=== PATIENT | male | born 1985 | race Caucasian/White ===

== ENCOUNTER 2016-11-26 19:04 | Emergency (ER) | payer OTHER ==
[~2016-11-26] VITALS: Ht 182.9 cm; Wt 129.6 kg
[~2016-11-26 19:04] MED LIST: ALBUAER19 INH
[2016-11-26] MEDS ORDERED: PRAZ1CAP10 PO (19:11)
[2016-11-26 19:13] VITALS: TEMP 36.8; Ht 182.9 cm; Wt 129.6 kg
[2016-11-26] MEDS ORDERED: KETOROLAC TROMETHAMINE 30 MG/ML VIAL IV STA (19:34)
[2016-11-26] MEDS ORDERED: DiphenhydrAMINE HCL 50 MG/ML VIAL IV STA (19:34)
[2016-11-26] MEDS ORDERED: PROCHLORPERAZINE 5 MG/ML 2 ML VIAL IV STA (19:34)
[2016-11-26] MEDS ORDERED: SODIUM CHLORIDE 0.9% 1000ML 1,000 ML IV STA (19:34)
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
[2016-11-26] MEDS ORDERED: PRAZ2CAP3 PO (19:49)
--- NOTE | 2016-11-26 20:05 | DIAGNOSTIC IMAGING REPORT ---
CT SCAN OF THE BRAIN WITHOUT IV CONTRAST CLINICAL HISTORY: Headache. COMPARISON STUDY: CT of the brain dated 04/14/2016. TECHNIQUE: Unenhanced axial CT scan of the brain is performed from the vertex to the skull base. Automated dose control exposure was utilized. CT DOSE: 729.78 mGycm FINDINGS: Brain parenchyma: The brain parenchyma is normal in appearance. There is no hemorrhage, mass effect, or evidence of acute territorial ischemia by CT criteria. Hogue-white matter is preserved. No extra-axial fluid collection is seen. Ventricles, sulci, cisterns: Normal in configuration. Intracranial vasculature: The visualized intracranial vasculature at the skull base is normal in appearance. Calvarium: Unremarkable. Sinuses and mastoids: The visualized paranasal sinuses are clear. There is a small right mastoid effusion. The left mastoid air cells are well pneumatized. Orbits: The bony orbits are grossly intact. IMPRESSION: No acute intracranial abnormality. Electronically signed by: Nolan Doyle M.D. 11/26/2016 8:04 PM Dictated Date/Time: 11/26/2016 8:03 PM
[2016-11-26 21:05] VITALS: BP 138/80; PULSE 81; O2SAT 98
== END 2016-11-26 21:05 | disposition home or self-care (01) ==
LOC: C.EDB 19:05 → C.EDA 21:05
DX: G43.909 Migraine, unspecified, not intractable, without status migrainosus (principal); I35.1 Nonrheumatic aortic (valve) insufficiency; J45.909 Unspecified asthma, uncomplicated; Z79.899 Other long term (current) drug therapy; Z88.0 Allergy status to penicillin; Z88.2 Allergy status to sulfonamides; Z88.8 Allergy status to other drugs, medicaments and biological substances

== ENCOUNTER 2016-12-01 16:14 | Emergency (ER) | payer OTHER ==
[~2016-12-01] VITALS: Ht 182.9 cm; Wt 128.5 kg
[~2016-12-01 16:14] MED LIST changes: -ALBUAER19 INH; +PRAZ1CAP10 PO; +PRAZ2CAP3 PO
[2016-12-01 16:17] VITALS: TEMP 36.9; Ht 182.9 cm; Wt 128.5 kg
[2016-12-01] MEDS ORDERED: LMC25 PO (16:33)
[2016-12-01] MEDS ORDERED: PRAZ2CAP2 PO (16:33)
[2016-12-01] MEDS ORDERED: ACETAMINOPHEN 500 MG TAB PO STA (17:07)
[2016-12-01] MEDS ORDERED: ACETAMINOPHEN 325 MG TAB ONE (17:32)
--- NOTE | 2016-12-01 17:49 | DIAGNOSTIC IMAGING REPORT ---
LUMBAR SPINE 5 VIEWS CLINICAL HISTORY: Low back pain. Lifting injury. FINDINGS: 5 views of the lumbar spine are obtained. No prior studies are available for comparison at the time of dictation. The skeletal structures are well mineralized. There is no radiographic evidence of fracture or malalignment. Vertebral body height and alignment are maintained. The transverse and spinous processes are intact. There is no evidence of spondylolysis. The intervertebral disc spaces are well-maintained. The visualized bony pelvis appears intact. There is a nonobstructed abdominal bowel gas pattern. IMPRESSION: Unremarkable radiographic evaluation of the lumbosacral spine. Electronically signed by: Nolan Doyle M.D. 12/01/2016 5:48 PM Dictated Date/Time: 12/01/2016 5:48 PM
--- NOTE | 2016-12-01 17:51 | DIAGNOSTIC IMAGING REPORT ---
THORACIC SPINE 3 VIEWS CLINICAL HISTORY: Thoracic back pain. Lifting injury. FINDINGS: AP, lateral, and swimmer's views of the thoracic spine are obtained. No prior studies are available for comparison at the time of dictation. The skeletal structures are well mineralized. There is no radiographic evidence of fracture or malalignment. Vertebral body height and alignment are maintained throughout the thoracic spine. The transverse processes and pedicles are grossly intact on the frontal view. The intervertebral disc spaces are maintained. The lung parenchyma is clear as imaged. IMPRESSION: Unremarkable radiographic assessment of the thoracic spine. Electronically signed by: Nolan Doyle M.D. 12/01/2016 5:49 PM Dictated Date/Time: 12/01/2016 5:48 PM
[2016-12-01] MEDS ORDERED: FLEXERIL HOME PACK 10 MG VIAL PO STA (18:34)
[2016-12-01] MEDS ORDERED: OXYCODONE IR HOME PACK PO STA (18:34)
[2016-12-01] MEDS ORDERED: OXYC1TAB3 PO (18:45)
[2016-12-01] MEDS ORDERED: CYCL10TA6 PO (18:45)
--- NOTE | 2016-12-01 18:51 | EMERGENCY ROOM VISIT NOTE ---
History First contact with patient: 16:49 Chief Complaint: BACK PAIN Stated Complaint: BACK PAIN- History of Present Illness The patient is a 31 year old male who presents to the Emergency Room via private vehicle with complaints of "back pain". 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 He notes he has had pain since. He notes that his entire back at this time hurts, mostly on the sides of the spine. He also notes he has pain radiating down the left arm. He states he has never had this before. He rates the pain as a 9/10 and throughout his entire back. He notes a dull pain into his legs and into his left arm. He does have a previous history of left shoulder injury. He this time denies any chest pain, shortness of breath. He denies any lower extremity weakness, bowel or bladder incontinence or numbness or tingling in the genital region. Review of Systems A complete 6-point Review of Systems was discussed with the patient, with pertinent positives and negatives listed in the History of Present Illness. All remaining Review of Systems questions can be considered negative unless otherwise specified. Past Medical/Surgical History Medical Problems: (1) Aortic regurgitation (2) Asthma, Unspecified Family History No significant family history Social History Smoking Status: Never Smoker Alcohol Use: none Drug Use: none Marital Status: Housing Status: lives with family Occupation Status: employed Current/Historical Medications Scheduled Budesonide/Formoterol Fumarate (Symbicort 160/4.5 Inhaler), 2 PUFFS INH BID Cyclobenzaprine Hcl (Flexeril), 10 MG PO TID Lamotrigine (Lamotrigine), 25 MG PO DAILY Magnesium Oxide (Magnesium Oxide), 420 MG PO DAILY Prazosin Hcl (Prazosin), 2 MG PO BID Sertraline Hcl (Zoloft), 200 MG PO DAILY Topiramate (Topamax), 100 MG PO DAILY Scheduled PRN Albuterol (Ventolin Hfa), 2 PUFFS INH Q4H PRN for Rescue/Asthma Symptoms Oxycodone Ir (Roxicodone Ir), 1-2 TAB PO Q4H PRN for Pain Allergies Coded Allergies: Clarithromycin (Verified Allergy, Intermediate, Rash, 11/26/16) Sulfa Drugs (Unverified Allergy, Mild, 04/14/16) Sulfamethoxazole (Unverified Allergy, Mild, 04/14/16) Trimethoprim (Unverified Allergy, Mild, 04/14/16) Penicillins (Unverified Allergy, Unknown, NEVER HAD REACTION,FAMILY HISTORY OF REACTION, 04/14/16) Physical Exam Vital Signs Date Time Temp Pulse Resp B/P Pulse Ox O2 Delivery O2 Flow Rate FiO2 12/01/16 19:01 74 15 142/95 99 12/01/16 16:17 36.9 88 18 153/97 97 Room Air Physical Exam VITAL SIGNS - Vital signs and nursing notes were reviewed. Patient is afebrile , slightly hypertensive at 153/97, non-tachycardic and is saturating well on room air at 97% GENERAL -31-year-old male appearing his stated age who is in no acute distress. Communicates well with provider and answers questions appropriately. SKIN - Without rashes. No petechial rashes. HEAD - NC/AT. EYES - Sclera anicteric. Palpebral conjunctiva pink and moist with no injection noted. EARS - No deformities of external structures noted on gross examination bilaterally. NECK - Neck with FROM. Supple to palpation. There is minimal tenderness to palpation overlying the paraspinous musculature of the cervical spine. No spinous processes tenderness. MUSCULOSKELETAL: There is tenderness to palpation overlying the paraspinous muscles which are of the thoracic and lumbar spine. No spinous processes tenderness. LUNGS - Chest wall symmetric without accessory muscle use, intercostals retractions, or central cyanosis. Normal vesicular breath sounds CTA B/L. No wheezes, rales, or rhonchi appreciated. CARDIAC - RRR with S1/S2. No murmur, rubs, or gallops appreciated. ABDOMEN - Abdominal contour without pulsations or visible masses. BS normoactive all four quadrants. No tenderness, palpable masses, hepatosplenomegaly, or ascites noted. EXTREMITIES - No clubbing or peripheral cyanosis. No pretibial edema present. Patient is vascularly intact in his extremities. +5/5 strength noted in UE/LE bilaterally. There is minimal tenderness to palpation overlying the left arm. Near Full range of motion noted. NEUROLOGIC - Cranial nerves II through XII grossly intact. Sensory intact to light touch throughout. Patellar reflexes +2/4. PSYCH - Pt is very pleasant and interacts well with examiner. Medical Decision & Procedures ER Provider Diagnostic Interpretation: LUMBAR SPINE 5 VIEWS CLINICAL HISTORY: Low back pain. Lifting injury. FINDINGS: 5 views of the lumbar spine are obtained. No prior studies are available for comparison at the time of dictation. The skeletal structures are well mineralized. There is no radiographic evidence of fracture or malalignment. Vertebral body height and alignment are maintained. The transverse and spinous processes are intact. There is no evidence of spondylolysis. The intervertebral disc spaces are well-maintained. The visualized bony pelvis appears intact. There is a nonobstructed abdominal bowel gas pattern. IMPRESSION: Unremarkable radiographic evaluation of the lumbosacral spine. Electronically signed by: Nolan Doyle M.D. 12/01/2016 5:48 PM Dictated Date/Time: 12/01/2016 5:48 PM THORACIC SPINE 3 VIEWS CLINICAL HISTORY: Thoracic back pain. Lifting injury. FINDINGS: AP, lateral, and swimmer's views of the thoracic spine are obtained. No prior studies are available for comparison at the time of dictation. The skeletal structures are well mineralized. There is no radiographic evidence of fracture or malalignment. Vertebral body height and alignment are maintained throughout the thoracic spine. The transverse processes and pedicles are grossly intact on the frontal view. The intervertebral disc spaces are maintained. The lung parenchyma is clear as imaged. IMPRESSION: Unremarkable radiographic assessment of the thoracic spine. Electronically signed by: Nolan Doyle M.D. 12/01/2016 5:49 PM Dictated Date/Time: 12/01/2016 5:48 PM Medications Administered Medications (Trade) Dose Ordered Sig/Nicolette Route Start Time Stop Time Status Last Admin Dose Admin Acetaminophen (Tylenol Tab) 650 mg STK-MED ONCE .ROUTE 12/01/16 17:32 12/01/16 17:33 DC 12/01/16 18:00 650 MG Oxycodone HCl (Roxicodone Immediate Rel 5MG Home Pack) 1 homepack UD STAT PO 12/01/16 18:34 12/01/16 18:38 DC 12/01/16 18:55 1 HOMEPACK Cyclobenzaprine HCl (FLEXERIL 10MG Home Pack) 1 homepack UD STAT PO 3/28/17 18:34 12/01/16 18:38 DC 12/01/16 18:55 1 [facility] Medical Decision Patient was seen and evaluated as above. After obtaining a thorough history and physical examination it appears that the patient is experiencing a muscle strain of his lumbar and thoracic region. There is tenderness to palpation in the paraspinous musculature. It appears that this radiates up into the patient' s left arm. I suspect he has muscle strain. An extensive discussion was had with the patient regarding potential cardiac causes and joint decision making it was decided not to pursue any cardiac causes. I do not suspect any cardiac causes and believe this is all musculoskeletal in nature. Radiographs were obtained and were negative of the thoracic and lumbar spine as the patient noted that he did hear some cracking in the low back. 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 He was educated upon me worrisome symptoms which to return as well as potential for serotonin syndrome while on the Flexeril and oxycodone with his chronic medication. I do believe the benefit outweighs the risk. He is to return with worsening of his symptoms. He was educated upon management, had questions prior to discharge, and was discharged home in good condition. He was provided with 3 days off work so he may rest and heal. In this time he is to follow-up with his Workmen's Compensation individuals, orthopedist. In evaluation treatment this patient following differential diagnoses were entertained: Lumbar strain, fracture, cardiac causes, among others. [place] Drug Monitoring Program Search Results: patient reviewed within database, no issues identified Impression Primary Impression: Back strain Departure Information Dispostion Home / Self-Care Condition GOOD Prescriptions Oxycodone Ir (Roxicodone Ir) 5 Mg Tab 1-2 TAB PO Q4H Y for Pain, #15 TAB For Initial Treatment Prov: Loki Copeland PA-C 12/01/16 Cyclobenzaprine Hcl (FLEXERIL) 10 Mg Tab 10 MG PO TID for 7 Days, #21 TAB Prov: Loki Copeland PA-C 12/01/16 Referrals Vinh Collins M.D. (PCP) Julien Marshall, DO Patient Instructions [facility] Additional Instructions You have been treated in the Emergency Department for Back Pain. You have been prescribed Oxy IR to be used for pain control. This is a narcotic medication. You cannot drive or consume alcohol while on this medicine. This medicine should only be used for pain that cannot be controlled with over-the- counter pain medicines. You have been prescribed Flexeril (cyclobenzaprine) 1 tabs orally, three times per day. Do NOT exceed 30 mg (6 tabs) per day. Take your first dose at bedtime as it can make you drowsy. Always take all medications as prescribed. For pain control, you can use the following [id number] medicines (if >12 yo): - Regular strength (325mg/tab) Tylenol (acetaminophen) 2 tabs every 4-6 hours as needed. Do not exceed 12 tablets in a 24 hour period. Avoid taking more than 4 grams (4000 mg) of Tylenol per day. This includes any other sources of acetaminophen you may take on a regular basis. - Regular strength (200 mg/tab) Advil (ibuprofen) 1-2 tabs every 4-6 hours as needed. Do not exceed a dose of 3200 mg per day. If this is an acute injury, ice can be applied to the area of pain for the first 3 days to help decrease pain and inflammation. After the first 3 days, a heating pad can be used over the area for continued soothing relief. You should schedule a follow-up appointment with Dr. Marshall the seafood technology specialist and your approved workmans compensation individual. Please call them first thing tomorrow morning. Return to the Emergency Department if your current symptoms worsen despite treatment course outlined above, or if you develop any of the following symptoms : intractable pain despite aforementioned treatment course, loss of control of your bowel or bladder, numbness or tingling in your groin, or development of a fever. Please return to the emergency department with any new/concerning symptoms. As we discussed Flexeril and oxycodone can increase your risk of serotonin syndrome. Please return for any new/concerning symptoms. SEROTONIN SYNDROME WARNING SIGNS: Serotonin syndrome symptoms usually occur within several hours of taking a new drug or increasing the dose of a drug you're already taking. Signs and symptoms include: Agitation or restlessness Confusion Rapid heart rate and high blood pressure Dilated pupils Loss of muscle coordination or twitching muscles Muscle rigidity Heavy sweating Diarrhea Headache Shivering Goose bumps Severe serotonin syndrome can be life-threatening. Signs and symptoms include: High fever Seizures Irregular heartbeat Unconsciousness Problem Qualifiers Primary Impression: Back strain Encounter type: initial encounter Qualified Codes: S39.012A - Strain of muscle, fascia and tendon of lower back, initial encounter
[2016-12-01 19:01] VITALS: BP 142/95; PULSE 74; O2SAT 99
[2016-12-01] MEDS ORDERED: PRVHFAIN INH (19:49)
[2016-12-01] MEDS ORDERED: TOPI100T34 PO (21:33)
[2016-12-01] MEDS ORDERED: MAGN420T PO (21:33)
[2016-12-01] MEDS ORDERED: SERT100T PO (21:33)
[2016-12-01] MEDS ORDERED: SYMIN160 INH (22:28)
== END 2016-12-01 19:02 | disposition home or self-care (01) ==
LOC: C.EDB 16:15 → C.EDD 18:02
DX: S39.012A Strain of muscle, fascia and tendon of lower back, initial encounter (principal); X50.9XXA Other and unspecified overexertion or strenuous movements or postures, initial encounter; Y99.0 Civilian activity done for income or pay; I35.1 Nonrheumatic aortic (valve) insufficiency; J45.909 Unspecified asthma, uncomplicated

== ENCOUNTER 2017-06-15 13:19 | Emergency (ER) | payer OTHER ==
[~2017-06-15] VITALS: Ht 185.4 cm; Wt 131.2 kg
[~2017-06-15 13:19] MED LIST changes: +LMC25 PO; +MAGN420T PO; -PRAZ1CAP10 PO; +PRAZ2CAP2 PO; -PRAZ2CAP3 PO; +PRVHFAIN INH; +SERT100T PO; +SYMIN160 INH; +TOPI100T34 PO
[2017-06-15 13:24] VITALS: TEMP 36.8; Ht 185.4 cm; Wt 131.2 kg
[2017-06-15] MEDS ORDERED: KETOROLAC TROMETHAMINE 30 MG/ML VIAL IV STA (14:38)
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
[2017-06-15] MEDS ORDERED: SODIUM CHLORIDE 0.9% 1000ML 1,000 ML IV SCH (15:00)
--- NOTE | 2017-06-15 15:27 | DIAGNOSTIC IMAGING REPORT ---
CHEST 2 VIEWS ROUTINE CLINICAL HISTORY: 32 years-old Male presenting with left chest pain. TECHNIQUE: PA and lateral views of the chest were obtained. COMPARISON: None. FINDINGS: Cardiomediastinal silhouette normal. Mildly low lung volumes. Lungs and pleural spaces clear. Osseous structures normal. Upper abdomen normal. IMPRESSION: 1. No acute cardiopulmonary disease. Electronically signed by: Vinh Watson M.D. 06/15/2017 3:25 PM Dictated Date/Time: 06/15/2017 3:24 PM
--- NOTE | 2017-06-15 15:45 | EMERGENCY ROOM VISIT NOTE ---
ED Visit Note First contact with patient: 14:12 The patient was seen and examined with Dr. Keegan Lopez, resident physician. We discussed the case and treatments ordered, reviewed the results, and determine the disposition. Please refer to the resident's note for additional details. I have been directly involved with the management and disposition as well as independently evaluated the patient as documented in this note.
[2017-06-15 16:44] VITALS: BP 141/97; PULSE 71; O2SAT 99
== END 2017-06-15 16:45 | disposition home or self-care (01) ==
LOC: C.EDB 13:20 → C.EDC 16:45
DX: S29.019A Strain of muscle and tendon of unspecified wall of thorax, initial encounter (principal); X58.XXXA Exposure to other specified factors, initial encounter; I35.1 Nonrheumatic aortic (valve) insufficiency; J45.909 Unspecified asthma, uncomplicated

== ENCOUNTER → 2017-08-17 | Outpatient (CLI) | payer OTHER | END | disposition home or self-care (01) | LOC: C.PATHSPEC 17:53 | PROVIDERS: ATTEND Urology | DX: Z30.2 Encounter for sterilization (principal) ==

== ENCOUNTER 2017-12-03 07:57 | Emergency (ER) | payer OTHER ==
[~2017-12-03] VITALS: Ht 185.4 cm; Wt 129.6 kg
[2017-12-03 08:00] VITALS: TEMP 36.7; Ht 185.4 cm; Wt 129.6 kg
[2017-12-03] MEDS ORDERED: KETOROLAC TROMETHAMINE 30 MG/ML VIAL IV STA (08:19)
[2017-12-03] MEDS ORDERED: SODIUM CHLORIDE 0.9% 1000ML 1,000 ML IV STA (08:19)
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
[2017-12-03 10:25] VITALS: BP 147/95; PULSE 63; O2SAT 95
== END 2017-12-03 10:25 | disposition home or self-care (01) ==
LOC: C.EDB 07:57
DX: R51 Headache (principal); R20.0 Anesthesia of skin; I35.1 Nonrheumatic aortic (valve) insufficiency; J45.909 Unspecified asthma, uncomplicated; Z79.899 Other long term (current) drug therapy; Z88.0 Allergy status to penicillin; Z88.1 Allergy status to other antibiotic agents; Z88.2 Allergy status to sulfonamides; Z88.8 Allergy status to other drugs, medicaments and biological substances

== ENCOUNTER 2018-01-26 21:20 | Emergency (ER) | payer OTHER ==
[~2018-01-26] VITALS: Ht 185.4 cm; Wt 129.2 kg
[2018-01-26 21:25] VITALS: Ht 185.4 cm; Wt 129.2 kg
[2018-01-26] MEDS ORDERED: SODIUM CHLORIDE 0.9% 1000ML 1,000 ML IV STA (21:53)
[2018-01-26] MEDS ORDERED: DiphenhydrAMINE HCL 50 MG/ML VIAL IV STA (21:53)
[2018-01-26] MEDS ORDERED: KETOROLAC TROMETHAMINE 30 MG/ML VIAL IV STA (21:53)
[2018-01-26] MEDS ORDERED: PROCHLORPERAZINE 5 MG/ML 2 ML VIAL IV STA (21:53)
[2018-01-26] MEDS ORDERED: AMIT25TA9 PO (22:07)
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
[2018-01-26 23:22] VITALS: BP 142/78; PULSE 70; TEMP 37.1; O2SAT 98
== END 2018-01-26 23:23 | disposition home or self-care (01) ==
LOC: EDBD 21:20 → C.EDA 21:21
DX: R51 Headache (principal); J45.909 Unspecified asthma, uncomplicated; Z79.899 Other long term (current) drug therapy